=== PATIENT | male | born 1985 | race American Indian/Alaskan Native ===

== ENCOUNTER 2019-06-02 14:05 | Emergency (ER) | payer SELFPAY ==
[2019-06-02 14:18] VITALS: BP 129/88
--- NOTE | 2019-06-02 14:37 | Event Note ---
ED Screening Note Date of service: 06/02/19 Time: 14:31 ED Screening Note: 33 y o presents cc of injury at work to his left lower back causing pain x 2 days states he twisted the wrong way lifting heavy tires This initial assessment/diagnostic orders/clinical plan/treatment(s) is/are subject to change based on patients health status, clinical progression and re- assessment by fellow clinical providers in the ED. Further treatment and workup at subsequent clinical providers discretion. Patient/guardian urged not to elope from the ED as their condition may be serious if not clinically assessed and managed. Initial orders include:
--- NOTE | 2019-06-02 17:15 | XRay Report ---
. LUMBAR SPINE 3 VIEWS INDICATION: back pain. COMPARISON: No relevant prior imaging study available. FINDINGS: Lumbar vertebral body height and disc space height is normal. Alignment is within normal limits. SI j oints are unremarkable. IMPRESSION: 1. No acute findings. Signer Name: Rick Calvo MD Signed: 06/02/2019 5:11 PM Workstation Name: [id number]
[2019-06-02] MEDS: TORADOL IM ONE ×2 (17:29→17:57)
[2019-06-02] MEDS: DECADRON IM ONE ×2 (17:29→17:58)
--- NOTE | 2019-06-02 17:31 | Emergency Department Report ---
ED General Adult HPI - General Chief complaint: Back Pain/Injury Stated complaint: BACK PAIN Time Seen by Provider: 06/02/19 14:31 Source: patient, EMS Mode of arrival: Ambulatory Limitations: No Limitations - History of Present Illness Initial comments: 33 yo male presents with L lower back pain. He states that the pain began at work 6 days ago. 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 -: Gradual Location: back Radiation: distal (L hip) Severity scale (0 -10): 4 Quality: aching Consistency: constant Improves with: none Worsens with: none Associated Symptoms: denies other symptoms Treatments Prior to Arrival: none - Related Data Previous Rx's Medication Instructions Recorded Last Taken Type HYDROcodone/APAP 5-325 [[place] 1 each PO Q4-6H PRN #16 tablet 01/14/15 Unknown Rx 5/325] Promethazine [Phenergan] 25 mg PO Q6H PRN #10 tablet 01/14/15 Unknown Rx Cyclobenzaprine [Flexeril 10 MG 10 mg PO TID PRN #15 tablet 06/02/19 Unknown Rx TAB] Ibuprofen [Motrin 600 MG tab] 600 mg PO Q8H PRN 7 Days #21 tablet 06/02/19 Unknown Rx Allergies Allergy/AdvReac Type Severity Reaction Status Date / Time No Known Allergies Allergy Verified 01/14/15 01:15 ED Review of Systems ROS: Stated complaint: BACK PAIN Other details as noted in HPI Constitutional: denies: chills, fever Eyes: denies: eye pain, eye discharge, vision change ENT: denies: ear pain, throat pain Respiratory: denies: cough, shortness of breath, wheezing Cardiovascular: denies: chest pain, palpitations Endocrine: no symptoms reported Gastrointestinal: denies: abdominal pain, nausea, diarrhea Genitourinary: denies: urgency, dysuria Musculoskeletal: as per HPI Skin: denies: rash, lesions Neurological: denies: headache, weakness, paresthesias Psychiatric: denies: anxiety, depression Hematological/Lymphatic: denies: easy bleeding, easy bruising ED Past Medical Hx - Past Medical History Previous Medical History?: No Hx Hypertension: No Hx CVA: No Hx Heart Attack/AMI: No Hx Congestive Heart Failure: No Hx Diabetes: No Hx Deep Vein Thrombosis: No Hx Pulmonary Embolism: No Hx GERD: No Hx Liver Disease: No Hx Renal Disease: No Hx Sickle Cell Disease: No Hx Arthritis: No Hx Headaches / Migraines: No Hx Seizures: No Hx Kidney Stones: No Hx Psychiatric Treatment: No Hx Asthma: No Hx COPD: No Hx Tuberculosis: No Hx Dementia: No Hx HIV: No - Surgical History Past Surgical History?: No Hx Coronary Stent: No Hx Open Heart Surgery: No Hx Pacemaker: No Hx Internal Defibrillator: No Hx Cholecystectomy: No Hx Appendectomy: No Hx Breast Surgery: No - Social History Smoking Status: Never Smoker Substance Use Type: None - Medications Home Medications: Home Medications Medication Instructions Recorded Confirmed Last Taken Type HYDROcodone/APAP 5-325 [[place] 1 each PO Q4-6H PRN #16 tablet 01/14/15 Unknown Rx 5/325] Promethazine [Phenergan] 25 mg PO Q6H PRN #10 tablet 01/14/15 Unknown Rx Cyclobenzaprine [Flexeril 10 MG 10 mg PO TID PRN #15 tablet 06/02/19 Unknown Rx TAB] Ibuprofen [Motrin 600 MG tab] 600 mg PO Q8H PRN 7 Days #21 tablet 06/02/19 Unknown Rx ED Physical Exam - General Limitations: No Limitations General appearance: other (appears to be in pain) - Head Head exam: Present: atraumatic, normocephalic - Eye Eye exam: Present: normal appearance - ENT ENT exam: Present: mucous membranes moist - Neck Neck exam: Present: normal inspection - Respiratory Respiratory exam: Present: normal lung sounds bilaterally. Absent: respiratory distress - Cardiovascular Cardiovascular Exam: Present: regular rate, normal rhythm. Absent: systolic murmur, diastolic murmur, rubs, gallop - GI/Abdominal GI/Abdominal exam: Present: soft, normal bowel sounds - Rectal Rectal exam: Present: deferred - Extremities Exam Extremities exam: Present: normal inspection - Back Exam Back exam: Present: tenderness (diffuse Lumbar tenderness that radiates to upper L leg), muscle spasm. Absent: full ROM (pain with flexion ) - Neurological Exam Neurological exam: Present: alert, oriented X3 - Psychiatric Psychiatric exam: Present: normal affect, normal mood - Skin Skin exam: Present: warm, dry, intact, normal color. Absent: rash ED Course Vital Signs 06/02/19 14:16 Temperature 98.3 F Pulse Rate 58 L Respiratory 16 Rate Blood Pressure 129/88 O2 Sat by Pulse 99 Oximetry ED Medical Decision Making - Medical Decision Making 33 yo male presents with L lower back pain. He states that the pain began at work 6 days ago. 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 A lumbar spine series was ordered and the results are listed below. Pt was instructed to take Ibuprofen and Cyclobenzaprine as directed. Don't drink, drive or lift heavy objects while on muscle relaxants. Pt was instructed to F/U with PCP; see ER if symptoms worsen or if new severe symptoms arise. Patient: CARMELITA SANTILLAN MR#: [id number] : 1985 Acct:[id number] Age/Sex: 33 / M ADM Date: 06/02/19 Loc: ED Attending Dr: Ordering Physician: STEPHEN LOJA PA-C Date of Service: 06/02/19 Procedure(s): XR spine lumbosacral 2-3V Accession Number(s): [id number] cc: STEPHEN LOJA PA-C Fluoro Time In Minutes: . LUMBAR SPINE 3 VIEWS INDICATION: back pain. COMPARISON: No relevant prior imaging study available. FINDINGS: Lumbar vertebral body height and disc space height is normal. Alignment is within normal limits. SI joints are unremarkable. IMPRESSION: 1. No acute findings. Signer Name: iRck Calvo MD Signed: 06/02/2019 5:11 PM Workstation Name: [id number] Transcribed By: DEDRICK Dictated By: Rick Calvo MD Electronically Authenticated By: Rick Calvo MD Signed Date/Time: 06/02/19 1713 Critical care attestation.: If time is entered above; I have spent that time in minutes in the direct care of this critically ill patient, excluding procedure time. ED Disposition Clinical Impression: Low back pain, Muscle spasm of back Disposition: DC-01 TO HOME OR SELFCARE Is pt being admited?: No Does the pt Need Aspirin: No Condition: Stable Instructions: Low Back Strain (ED), Muscle Spasm (ED) Additional Instructions: Pt was instructed to take Ibuprofen and Cyclobenzaprine as directed. Don't drink, drive or lift heavy objects while on muscle relaxants. Pt was instructed to F/U with PCP; see ER if symptoms worsen or if new severe symptoms arise. Prescriptions: Cyclobenzaprine [Flexeril 10 MG TAB] 10 mg PO TID PRN #15 tablet PRN Reason: Muscle Spasm Ibuprofen [Motrin 600 MG tab] 600 mg PO Q8H PRN 7 Days #21 tablet PRN Reason: Pain Referrals: [facility] [Outside] - 3-5 Days Forms: Work/School Release Form(ED) Time of Disposition: 17:43
== END 2019-06-02 17:58 | disposition home or self-care (01) ==
LOC: ED 14:05
DX: M54.5 Low back pain (principal); Z79.899 Other long term (current) drug therapy
CPT/HCPCS: 72100; 96372; 99283; J1100; J1885